=== PATIENT | female | born 2000 | race African-American/Black ===

== ENCOUNTER 2022-05-09 14:14 | Emergency (ER) | payer OTHER | END 2022-05-09 15:48 | disposition home or self-care (01) | LOC: CSHERS 14:14 | DX: S16.1XXA Strain of muscle, fascia and tendon at neck level, initial encounter (principal); M79.651 Pain in right thigh; R03.0 Elevated blood-pressure reading, without diagnosis of hypertension; V49.3XXA Car occupant (driver) (passenger) injured in unspecified nontraffic accident, initial encounter; Y92.410 Unspecified street and highway as the place of occurrence of the external cause | CPT/HCPCS: 99283 ==